=== PATIENT | male | born 1950 | race Caucasian/White ===

== ENCOUNTER 2023-07-02 14:44 | Inpatient (IN) ==
--- NOTE | 2023-07-02 14:54 | ED Triage Note ---
Date of Service July 02, 2023 History of Present Illness This patient was briefly evaluated while in triage. An abbreviated physical exam was performed. This patient is a 73-year-old Male who presents to the ED for evaluation of platelets of 2. They have been dropping recently, much lower than recently. Has never had a transfusion. Not a cancer patient. Recently had an abdominal MRI. Physical Exam CONSTITUTIONAL: in no acute pain or distress, resting comfortably SKIN: pink, warm, dry CARDIAC: regular rate and rhythm RESPIRATORY: in no respiratory distress, lungs clear to auscultatio Initial orders for labs and / or imaging were placed and patient was placed in the waiting area until a bed is available. Please see further documentation for the full ED course.
[2023-07-02 16:06] LABS: Albumin Globulin Ratio 1.3 (0.9-2); Albumin Level 3.6 gm/dl (3.4-5.0); BUN Creatinine Ratio 20.5 (10-20); Bilirubin,Total 0.7 mg/dl (0.2-1.0); Calcium 9.4 mg/dl (8.6-10.3); Creatinine Clr Calc Pharmacy 65.8 ml/min; Est GFR (African American) 71.8 ml/min; Est GFR (Non-African American) 61.9 ml/min; Globulin 2.8 gm/dl (2.5-4.0); Potassium 3.7 mmol/L (3.5-5.1); Total Protein 6.4 gm/dl (6.0-8.3)
[2023-07-02 16:17] LABS: Hematocrit (blood only) 44.8 % (42.0-52.0); Hemoglobin 15.1 g/dl (14.0-18.0); Mean Corpuscular Hemoglobin 32.5 pg (25.0-34.0); Mean Corpuscular Hgb Conc 33.7 g/dL (32.0-36.0); Mean Corpuscular Volume 96.6 fL (80.0-100.0); Platelet Count 2 K/uL (130-400); RDW Coefficient of Variation 13.2 % (11.5-14.5); RDW Standard Deviation 47.2 fL (36.4-46.3); Red Blood Count 4.64 M/uL (4.70-6.10); White Blood Count 4.78 K/ul (4.8-10.8)
[2023-07-02 16:18] LABS: Basophils # (auto) 0.04 K/uL (0.00-0.20); Basophils % (auto) 0.8 %; Eosinophils # (auto) 0.24 K/uL (0.00-0.50); Immature Granulocytes # (auto) 0.02 K/uL (0.01-0.20); Immature Granulocytes % (auto) 0.4 %; Lymphocytes # (auto) 1.79 K/uL (1.20-3.40); Lymphocytes % (auto) 37.4 %; Monocytes # (auto) 0.73 K/uL (0.11-0.59); Monocytes % (auto) 15.3 %; Neutrophils # (auto) 1.96 K/uL (1.40-6.50); Neutrophils % (auto) 41.1 %; Platelet Estimate Signific. Decreased (Normal)
[2023-07-02 16:28] LABS: Partial Thromboplastin Ratio 0.9; Prothrombin Time 10.9 Seconds (9.0-12.0)
--- NOTE | 2023-07-02 16:45 | Emergency Department Note ---
Impression & Plan Severe thrombocytopenia ED Provider Note NAME: LEONOR JORDAN AGE: 73 SEX: M : 1950 ARRIVES VIA: Walk-In INFORMANT: Patient ED PROVIDER(S): Hebert Marti DO CHIEF COMPLAINT: low platelets HPI: Patient is a 73-year-old male who presents to the ER for low platelets. Patient is having no other complaints at this time with exception of rash throughout his body. He denies any headache or change in vision. No chest pain or shortness of breath. No nausea, vomiting, or diarrhea. No blood in the stool. He notes [facility] They feel as though he may have been diagnosed with ITP but or not 100% sure. ADDITIONAL HISTORY OBTAINED: Per HPI Chronic Medical/Social Conditions Affecting Care: Per HPI PAST MEDICAL HISTORY:See Below PAST SURGICAL HISTORY:See Below FAMILY HISTORY:See Below SOCIAL HISTORY:See Below HOME MEDICATIONS:See Below ALLERGIES:See Below VITALS:See Below PHYSICAL EXAMINATION: GENERAL: Sitting up in bed, alert, well appearing, well nourished, no distress, non-toxic EYE EXAM: normal conjunctiva. OROPHARYNX: mucous membranes are moist LUNGS: Clear to auscultation. Normal chest wall mechanics HEART: no murmurs, S1 normal and S2 normal ABDOMEN: abdomen soft, non-tender, normo-active bowel sounds, no masses, no rebound or guarding. SKIN: Petechiae on the abdomen and back UPPER EXTREMITIES: upper extremities are grossly normal. LOWER EXTREMITIES: No pitting edema. NEURO EXAM: Normal sensorium, cranial nerves II-XII grossly intact, normal speech, no gross weakness of arms, no gross weakness of legs. MEDICAL DECISION MAKING: Patient is a 73-year-old male who presents ER for the above-stated complaint. IV was established blood work was obtained. Labs show mild leukopenia at 4.7. No significant anemia. Platelets were severely low at 2. INR unremarkable. BMP with LFTs bilirubin was unremarkable. Patient was typed and screened and initially ordered platelets and discussed with hematology oncology. They recommended IVIG, folic acid as well as a vitamin B12 level in combination with high-dose Decadron 40 mg a day x 3 days and admission for further workup. Patient was given 1 mg/kg of IVIG for total of 80 mg. I updated the patient as well. Patient was admitted to the hospitalist External Records Reviewed: None Consults/Care Managements Discussions: Per MDM Triage Nursing notes reviewed. Limited review of prior medical records performed Vital Signs: reviewed and remarkable for no significant abnormalities Differential diagnosis: Infection, dehydration, metabolic abnormality, hypo/hyperglycemia, electrolyte disturbance, anemia, hypoxia, cardiac sources, intracerebral event, toxicologic, neurologic, as well as other pathologies. ER treatment provided: See below Diagnostics interpreted by me include EKG and cardiac monitoring as listed below: -Cardiac Monitoring: An order was placed for continuous cardiac monitoring. The monitor shows a rate of 70 with sinus rhythm. -ECG: none -Laboratory studies:Interpreted by me as stated above in MDM and shown below. Imaging studies: Xrays: As interpreted by me:none CTs show: none Procedures:none Critical Care: I have personally spent 32 minutes of critical care time in the direct management of this patient. This includes bedside care, interpretation of diagnostic studies, and testing, discussion with consultants, patient, and family members, and other required patient management activities. This 32 minutes is in excess of all separately billable procedures. Past Med/Surg History Medical History (Updated 07/02/23 @ 21:44 by Hebert Marti DO) History of SCC (squamous cell carcinoma) of skin History of basal cell cancer Severe thrombocytopenia Surgical History (Updated 07/02/23 @ 18:31 by Kali Candelario MD) History of arthroscopy of right knee History of inguinal hernia repair History of spinal fusion Social History Smoking Status: Smoker, status unknown Allergies Allergies Allergy/AdvReac Type Severity Reaction Status Date / Time MRI CONTRAST Allergy Intermediate ITCHY RASH Uncoded 07/02/23 17:33 ALL OVER BODY. Home Meds Home Medications Medication Instructions Recorded Confirmed ascorbic acid (vitamin C) 500 mg 500 mg PO QPM 07/02/23 07/02/23 tablet (Vitamin C) biotin 10 mg tablet 10 mg PO HS 07/02/23 07/02/23 cholecalciferol (vitamin D3) 25 25 mcg PO DAILY 07/02/23 07/02/23 mcg (1,000 unit) tablet (Vitamin D3) coenzyme Q10 100 mg capsule 100 mg PO QDL 07/02/23 07/02/23 (CoQ-10) cyanocobalamin (vitamin B-12) 1,000 mcg PO QPM 07/02/23 07/02/23 1,000 mcg tablet (Vitamin B-12) glucosamine sulf dipot 1 cap PO QAM 07/02/23 07/02/23 chlr,msm,chond 550 mg-C 30 mg-nery 1 mg capsule (Glucosamine Chondroitin) multivitamin 1 tab PO QDL 07/02/23 07/02/23 omega 5-tsf-rdx-fish oil 1,000 mg 1 cap PO QDL 07/02/23 07/02/23 (120 mg-180 mg) capsule (Fish Oil) red yeast rice 600 mg tablet 600 mg PO QAM 07/02/23 07/02/23 zinc acetate 50 mg (zinc) capsule 50 mg PO QPM 07/02/23 07/02/23 Results & Data (ED) Vital Signs Vital Signs - 24 hr 07/02/23 14:48 07/02/23 16:58 07/02/23 17:06 Temperature 36.4 C L Temperature Source Oral Pulse Rate 84 77 Pulse Rate [Apical] 75 Pulse Rate from SpO2 Sensor Respiratory Rate 20 20 Respiratory Effort / Characteristics Non-Labored Spontaneous Respiratory Depth Normal Respiratory Pattern Regular Blood Pressure 160/94 H Blood Pressure [Right Arm] 177/100 H Blood Pressure Mean 116 Blood Pressure Mean [Right Arm] 125 Blood Pressure Position [Right Arm] Sitting Pulse Oximetry 97 98 Oxygen Delivery Method Room Air Room Air Sepsis Recent Fever Within 48 Hours No Sepsis New/Unexplained Change in Mental Status N/A Sepsis Action Taken by Nursing No Action Required 07/02/23 17:07 07/02/23 17:07 07/02/23 17:30 Temperature Temperature Source Pulse Rate 74 78 Pulse Rate [Apical] Pulse Rate from SpO2 Sensor 74 78 Respiratory Rate 15 18 Respiratory Effort / Characteristics Respiratory Depth Respiratory Pattern Blood Pressure 177/100 H Blood Pressure [Right Arm] Blood Pressure Mean 132 Blood Pressure Mean [Right Arm] Blood Pressure Position [Right Arm] Pulse Oximetry 98 97 Oxygen Delivery Method Sepsis Recent Fever Within 48 Hours Sepsis New/Unexplained Change in Mental Status Sepsis Action Taken by Nursing Laboratory Data 07/02/23 15:26 07/02/23 15:26 Lab Results 07/02/23 07/02/23 Range/Units 15:26 15:32 WBC 4.78 L (4.8-10.8) K/ul RBC 4.64 L (4.70-6.10) M/uL Hgb 15.1 (14.0-18.0) g/dl Hct 44.8 (42.0-52.0) % MCV 96.6 (80.0-100.0) fL MCH 32.5 (25.0-34.0) pg MCHC 33.7 (32.0-36.0) g/dL RDW Std Deviation 47.2 H (36.4-46.3) fL RDW Coeff of [place]ore[place] 13.2 (11.5-14.5) % Plt Count 2 L* (130-400) K/uL Immature Gran % (Auto) 0.4 % Neut % (Auto) 41.1 % Lymph % (Auto) 37.4 % [place] % (Auto) 15.3 % Eos % (Auto) 5.0 % Baso % (Auto) 0.8 % Neut # (Auto) 1.96 (1.40-6.50) K/uL Lymph # (Auto) 1.79 (1.20-3.40) K/uL [place] # (Auto) 0.73 H (0.11-0.59) K/uL Eos # (Auto) 0.24 (0.00-0.50) K/uL Baso # (Auto) 0.04 (0.00-0.20) K/uL Immature Gran # (Auto) 0.02 (0.01-0.20) K/uL Platelet Estimate Signific. Decreased L (Normal) Peripher Smr Path Cons Cancelled PT 10.9 (9.0-12.0) Seconds INR 1.0 (0.9-1.1) APTT 26.0 (21.0-31.0) Seconds PTT Ratio 0.9 Sodium 139 (136-145) mmol/L Potassium 3.7 (3.5-5.1) mmol/L Chloride 103 (98-107) mmol/L Carbon Dioxide 30 (21-32) mmol/L Anion Gap 6 (3-11) BUN 24 H (6-23) mg/dl Creatinine 1.17 (0.6-1.4) mg/dl Est Cr Clr Drug Dosing 65.8 ml/min Est GFR ( Amer) 71.8 ml/min Est GFR (Non-Af Amer) 61.9 ml/min BUN/Creatinine Ratio 20.5 H (10-20) Glucose 124 H (70-99(Fasting)) mg/dl Calcium 9.4 (8.6-10.3) mg/dl Total Bilirubin 0.7 (0.2-1.0) mg/dl AST 34 (13-39) U/L ALT 30 (7-52) U/L Alkaline Phosphatase 62 (34-104) U/L Total Protein 6.4 (6.0-8.3) gm/dl Albumin 3.6 (3.4-5.0) gm/dl Globulin 2.8 (2.5-4.0) gm/dl Albumin/Globulin Ratio 1.3 (0.9-2) Vitamin B12 935 H (180-914) pg/ml Folate > 22.30 (>5.38) ng/ml Blood Type O Positive Antibody Screen NEGATIVE Administered Medications Immune Globulin (Octagam 10%) 200 mls @ 48.9 mls/hr IV 1730 ROX; Protocol Stop: 07/02/23 23:00 Last Titration: 07/02/23 21:19 Dose: Infused Documented By: Titration: 07/02/23 20:30 Dose: 2.04 mg/kg/min, 100 mls/hr Documented By: Admin: 07/02/23 18:06 Dose: 1 mg/kg/min, 48.9 mls/hr Documented By: AM Discontinued Medications Dexamethasone 40 mg/ Dextrose 35 mls @ 50 mls/hr IV NOW ONE Stop: 07/02/23 17:41 Last Infusion: 07/02/23 18:23 Dose: Infused Documented By: Admin: 07/02/23 17:15 Dose: 50 mls/hr Documented By: QGV Immune Globulin (Immune Globulin (Human) Soln ) 1 each IV NOW ONE Stop: 07/02/23 16:48 Last Admin: 07/02/23 18:06 Dose: Not Given Documented By: AM Discharge Plan Visit Data Chief Complaint: Referred by Doctor Stated Complaint: POSSIBLE BLOOD TRANSFUSION ED Provider: Hbeert Marti Discharge Problem: Severe thrombocytopenia Discharge Instructions Interventions: ED Discharge Assessment Last Done: 07/02/23 20:34
[2023-07-02] MEDS ORDERED: IMMUNE GLOBULIN (HUMAN) SOLN IV ONE (16:47)
[2023-07-02] MEDS ORDERED: dexAMETHasone**PF** 10 MG/ML VIAL IV ONE (16:47)
[2023-07-02] MEDS ORDERED: dexAMETHasone 40 MG in DEXTROSE 5% 25 ML IV ONE (17:00)
[2023-07-02] MEDS ORDERED: Octagam 10% IVIG 20 gram bottle IV SCH (17:30)
[2023-07-02 17:43] LABS: Folate (Folic Acid),Ser orPlas > 22.30 ng/ml (>5.38)
--- NOTE | 2023-07-02 17:44 | History & Physical Report ---
Date of Service July 02, 2023 Assessment & Plan (1) Severe thrombocytopenia: Plan: Suspected ITP Discussed with Dr Braxton - IVIG 1g/kg today, repeat Plt tomorrow to decide on repeated dosing. Dexamethasone 40mg IV daily for 5 days. Consult hematology Plan VTE Prophylaxis - contraindicated in setting of severe thrombocytopenia Diet - regular Disposition - admit to med/surg Admission and Anticipated Discharge Date Admission Date: July 02, 2023 History of Present Illness Chief Complaint: Thrombocytopenia on outpatient labs Primary Care Provider: Nahum Brooks DO Andrew Cochran is a 73 year old male who presented to the ER with platelets of 2. History taken from the patient as I do not have access to the [facility] records at this time. He reports first having a known problem with his platelets in January at the [place]. He followed up with his PCP Dr Brooks and I am unclear on events in the interim however he was treated with 10 days of 40mg dexamethasone on May 08. After stopping this he had moderate side effects of withdrawal with fatigue, diarrhea, frequent urination lasting for 2 days. He was referred to hematology and saw DERIC Jauregui who started 70mg prednisone starting May 15. He was recently weaned off this 1-2 weeks ago over the course of 6-8 days. He reports no epistaxis, hematemesis, hematuria, melena or hematochezia. He has noticed a change in his focusing for the last couple of months - not seeing double and plans to follow up with an almond paste molder regarding this. No vision loss or eye pain. He underwent MRI June 26 and reports the day following this he had a widespread rash which is still present (on inspection this is consistent with petechiae. On outpatient labs today his platelets were 2 therefore he was sent to the ER for further evaluation. ER provider discussed with Dr Braxton and advised IVIG and dexamethasone treatment. Allergies Allergy/AdvReac Type Severity Reaction Status Date / Time MRI CONTRAST Allergy Intermediate ITCHY RASH Uncoded 07/02/23 17:33 ALL OVER BODY. Home Medications Medication Instructions Recorded Confirmed Type ascorbic acid (vitamin C) 500 mg 500 mg PO QPM 07/02/23 07/02/23 History tablet (Vitamin C) biotin 10 mg tablet 10 mg PO HS 07/02/23 07/02/23 History cholecalciferol (vitamin D3) 25 25 mcg PO DAILY 07/02/23 07/02/23 History mcg (1,000 unit) tablet (Vitamin D3) coenzyme Q10 100 mg capsule 100 mg PO QDL 07/02/23 07/02/23 History (CoQ-10) cyanocobalamin (vitamin B-12) 1,000 mcg PO QPM 07/02/23 07/02/23 History 1,000 mcg tablet (Vitamin B-12) glucosamine sulf dipot 1 cap PO QAM 07/02/23 07/02/23 History chlr,msm,chond 550 mg-C 30 mg-nery 1 mg capsule (Glucosamine Chondroitin) multivitamin 1 tab PO QDL 07/02/23 07/02/23 History omega 6-vqo-dyj-fish oil 1,000 mg 1 cap PO QDL 07/02/23 07/02/23 History (120 mg-180 mg) capsule (Fish Oil) red yeast rice 600 mg tablet 600 mg PO QAM 07/02/23 07/02/23 History zinc acetate 50 mg (zinc) capsule 50 mg PO QPM 07/02/23 07/02/23 History Past Med/Surg History Medical History (Updated 07/02/23 @ 21:44 by Hebert Marti DO) History of SCC (squamous cell carcinoma) of skin History of basal cell cancer Severe thrombocytopenia Surgical History (Updated 07/02/23 @ 18:31 by Kali Candelario MD) History of arthroscopy of right knee History of inguinal hernia repair History of spinal fusion Social History Smoking Status: Never smoker Hx Alcohol Use: Yes Alcohol type: beer Hx Substance Use: No Preferred Language: Syriac Communication Ability: Effective Forepart Rounder Required: No Beliefs That Will Affect Care: None Current Living Situation: Significant Other Feels Safe at Home: Yes Safety Concerns: Feels Safe At This Time Review of Systems Review of Systems: All systems reviewed & are unremarkable except as noted in HPI & below Physical Exam Constitutional: WD/WN, vitals as above Eyes: PERRL, conjunctivae normal, anicteric sclerae ENMT: external ear and nose normal, oropharynx normal Neck: trachea midline, no thyromegaly Respiratory: normal respiratory effort, lungs clear to auscultation Cardiovascular: RRR, no murmur, no edema Gastrointestinal (Abdomen): normal bowel sounds, soft, nontender, no hepatosplenomegaly Musculoskeletal: no cyanosis or clubbing, extremities motor strength 5/5 Skin: Widespread petechia over all four limbs abdomen, chest and back Neurologic: moves all extremities and awake; not confused Psychiatric: A+Ox3, euthymic affect Genitourinary: no CVA tenderness Results & Data Results & Data Vital Signs (Past 12 Hours) Vital Signs Temp Pulse Pulse Resp BP BP Pulse Ox 07/02/23 17:06 77 07/02/23 16:58 75 20 177/100 H 98 07/02/23 14:48 36.4 C L 84 20 160/94 H 97 O2 Del Method 07/02/23 17:06 07/02/23 16:58 Room Air 07/02/23 14:48 Room Air Laboratory Results Abnormal lab results 07/02/23 Range/Units 15:26 WBC 4.78 L (4.8-10.8) K/ul RBC 4.64 L (4.70-6.10) M/uL RDW Std Deviation 47.2 H (36.4-46.3) fL Plt Count 2 L* (130-400) K/uL [place] # (Auto) 0.73 H (0.11-0.59) K/uL Platelet Estimate Signific. Decreased L (Normal) BUN 24 H (6-23) mg/dl BUN/Creatinine Ratio 20.5 H (10-20) Glucose 124 H (70-99(Fasting)) mg/dl Diagnostic Findings XR chest 1V portable HISTORY: non-specific pneumonitis on recent MRI COMPARISON: Abdominal MRI 06/26/2023. FINDINGS: No pneumothorax. No pleural effusions. No focal lung consolidations to suggest a pneumonia. No evidence for pulmonary edema. Specifically, no right basilar consolidation to correspond to the prior MRI. The heart is normal in size. No acute fractures identified. IMPRESSION: No focal lung consolidations to suggest a pneumonia.] Medications Administered ER Medications Given: IVIG 1mg/kg/min Decadron 40mg IV Code Status & VTE Plan Code Status Full VTE Prophylaxis Plan VTE Prophylaxis will be ordered: No Reason for no VTE drug order: Contraindicated PG Care Time/CCT Total # of Minutes Spent Total Time Spent with Patient: Total time spent is greater than 50% in coordination of care (as documented) at patient's floor/unit and/or counseling patient: Coding Level of Care Code 34796 INT INP/OBS CARE 2/55MIN Diagnoses Severe thrombocytopenia D69.6
[2023-07-02 18:04] LABS: Vitamin B12 935 pg/ml (180-914)
--- NOTE | 2023-07-02 18:08 | XRay Report ---
XR chest 1V portable HISTORY: non-specific pneumonitis on recent MRI COMPARISON: Abdominal MRI 06/26/2023. FINDINGS: No pneumothorax. No pleural effusions. No focal lung consolidations to suggest a pneumonia. No evidence for pulmonary edema. Specifically, no right basilar consolidation to correspond to the p rior MRI. The heart is normal in size. No acute fractures identified. IMPRESSION: No focal lung consolidations to suggest a pneumonia. ACT 112: Negative or not required by law. Electronically signed by: Piyush Palmer M.D. 07/02/2023 6:07 PM
[2023-07-02] MEDS ORDERED: Octagam 10% IVIG 30 gram bottle IV SCH (19:30)
[2023-07-02] MEDS: Octagam 10% IVIG 20 gram bottle IV SCH (21:49)
[2023-07-03] MEDS: Octagam 10% IVIG 20 gram bottle IV SCH ×6 (01:11→18:39)
[2023-07-03 07:36] LABS: Hematocrit (blood only) 46.2 % (42.0-52.0); Hemoglobin 16.1 g/dl (14.0-18.0); Mean Corpuscular Hemoglobin 32.6 pg (25.0-34.0); Mean Corpuscular Hgb Conc 34.8 g/dL (32.0-36.0); Mean Corpuscular Volume 93.5 fL (80.0-100.0); Platelet Count 3 K/uL (130-400); RDW Coefficient of Variation 12.9 % (11.5-14.5); RDW Standard Deviation 44.3 fL (36.4-46.3); Red Blood Count 4.94 M/uL (4.70-6.10); White Blood Count 5.07 K/ul (4.8-10.8)
[2023-07-03 07:57] LABS: BUN Creatinine Ratio 20.9 (10-20); Calcium 9.2 mg/dl (8.6-10.3); Creatinine Clr Calc Pharmacy 84.7 ml/min; Est GFR (African American) 100.4 ml/min; Est GFR (Non-African American) 86.6 ml/min
[2023-07-03] MEDS: dexAMETHasone 40 MG in DEXTROSE 5% 25 ML IV SCH (08:15)
[2023-07-03 08:16] LABS: Basophils # (auto) 0.01 K/uL (0.00-0.20); Basophils % (auto) 0.2 %; Immature Granulocytes # (auto) 0.02 K/uL (0.01-0.20); Immature Granulocytes % (auto) 0.4 %; Lymphocytes # (auto) 0.54 K/uL (1.20-3.40); Lymphocytes % (auto) 10.7 %; Monocytes # (auto) 0.06 K/uL (0.11-0.59); Monocytes % (auto) 1.2 %; Neutrophils # (auto) 4.44 K/uL (1.40-6.50); Neutrophils % (auto) 87.5 %
[2023-07-03] MEDS ORDERED: IMMUNE GLOBULIN (HUMAN) SOLN IV ONE (08:45)
[2023-07-03] MEDS ORDERED: DEXAMETHASONE SOD INJ 4 MG/ML VIAL IV SCH (09:00)
--- NOTE | 2023-07-03 13:37 | Consultation ---
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 He does not have wet purpura, GI or bleeding, or other immediately threatening aspect to this. He did show good response to dexamethasone approximately 1 month ago but unfortunately ongoing discussion of chronic treatment did not reach a culminating recommendation. There are no particular signs to suggest an auto immune or lymphoproliferative process that lies behind this. He has had no recent new medications or recent or remote toxic exposures that might be causative. Peripheral smear and abdominal CT do not suggest any lymphoproliferative process, microangiopathic process, or other active pathology that might be the cause. We will repeat a 4-day course of dexamethasone 40 mg which can be given either IV or p.o. He did receive 1 g of IVIG on his initial hospital day and with low platelet still today that should be repeated but that should be sufficient for right now. He will need to be to transitioned to a long-term management option. I spoke at length both about rituximab and thrombopoietin receptor agonists like avatrombopag. He has very negative feelings about the rituximab so we will make provisional arrangements to get approval for the avatrombopag. Anticipate that his platelets should rise sufficiently by the weekend for discharge, he is scheduled to see my colleague Dr. Vega July 10 at 1030a at the [facility] (2) Weight loss: Unclear cause. GI work-up with colonoscopy apparently showed 1 benign polyp. I can offer no immediate explanation for weight loss and by his description has modulated somewhat. There was some lower abdominal discomfort at 1 point last year but his current abdominal MRI is completely unremarkable (hepatic lobulations suspected on CT scan did not bear out on the MRI). Only a remote history of tobacco use, might consider imaging of his chest but that is likely to be low yield. There were some inferior changes on the abdominal MRI to suggest some atelectasis. May also need to consider whether or not an endocrine work-up would be worthwhile. Plan Immediate priority is to thrombocytopenia short-term should receive Decadron and immunoglobulin as above and given his response previously I would expect he would at least get a temporary response now. Once his platelets have risen consistently above 20,000 (confirmed on at least 2 separate determinations) he can be cautiously discharged but with admonition to rapidly return for any recurrent bleeding or rash. He will need to transition to a longer term management strategy. That we will likely be thrombopoietin receptor agonist and we are seeking provisional approval for avatrombopag. He is scheduled to see Dr. Vega on July 10 at 10:30 AM the [facility] to finalize that. Weight loss is without immediately clear explanation and indeed may have modulated spontaneously. As we stabilize his platelet count, Dr. Vega can also determine to what extent further work-up for that weight loss is required. This may require endocrine evaluation as well. I have given the patient an after visit summary generated from the [facility] database that reviews his provisional diagnosis of ITP, outlines the treatment plan, notes the potential for second opinion which he is already arranging, and gives him relevant websites to consult. I have also generated patient oriented information sheets about both rituximab and avatrombopag and given to him for review History of Present Illness Reason for Consultation: Severe thrombocytopenia Attending Physician: Hebert Huitron DO History of Present Illness 73-year-old [employer] who did not serve in areas where he was exposed to agent or to other toxic chemicals admitted with profound thrombocytopenia and petechiae Patient was followed [facility] with some ongoing questions as to the status of his liver. Serial blood counts showed a downtrending platelet count which had been at 144,000 in July 2022 but had fallen down to 57,000 in March and then less than 30,000 at the end of April. He was treated with dexamethasone initially 40 mg daily for 4 days and then apparently a taper over 2 weeks with platelet counts rising into the 90,000 range. Work-up showed negative screens for HIV and hepatitis C, normal B12 and folic acid levels, peripheral smear review at the [facility] and then again here in our hospital showed no suggestions for microangiopathic process or platelet clumping. There has been no suggestion of a lymphoproliferative disorder. (Lab results from the [facility] are scanned to our [facility] chart) February CT scan done through the [facility] on 02/27/2023 showed normal-sized liver but lobulated margins and coarse echo pattern suggestive of hepatocellular disease. Spleen size was normal. Kidneys show unremarkable cyst on the left side, there is no pathologic adenopathy. Follow-up abdominal MRI here on 06/26/2023 showed no acute intra-abdominal abnormality, liver and spleen were felt to be normal on that study, MRCP was normal, he had indeterminate right basilar opacities on lung evaluation His last steroid had been in mid June, he has developed petechial rash on his lower extremities bilaterally and as well marrow petechiae and bruising in the right upper extremity and was admitted with single digit platelet counts. He has not had wet purpura, hemoptysis, melena, hematochezia, hematuria, or other major bleeding issues and currently feels reasonably well He has had only a very remote history of tobacco use and briefly at a young age. He is not significant alcohol drinker. While in the [employer] he had no major toxic exposures. 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 GI evaluation in 2021 showed 1 polyp that was apparently benign on colonoscopy. Overall GI could not identify any discrete abnormality causing his problems He is taken no new medications recently, he has not had any other unusual exposures, other than the recent petechiae he has had no particular issues with hemostasis in the past. He has had no fevers, chills or signs of infection and [facility]. He is not having any other major focal systems complaints at this time He is not aware of any unusual pattern of blood disorders or cancer in the family. He has had some superficial skin cancers, apparently squamous cell cancer particular but no other personal history of any malignancy or suggestion of malignancy Allergies Allergy/AdvReac Type Severity Reaction Status Date / Time MRI CONTRAST Allergy Intermediate ITCHY RASH Uncoded 07/02/23 17:33 ALL OVER BODY. Home Medications Medication Instructions Recorded Confirmed Type ascorbic acid (vitamin C) 500 mg 500 mg PO QPM 07/02/23 07/02/23 History tablet (Vitamin C) biotin 10 mg tablet 10 mg PO HS 07/02/23 07/02/23 History cholecalciferol (vitamin D3) 25 25 mcg PO DAILY 07/02/23 07/02/23 History mcg (1,000 unit) tablet (Vitamin D3) coenzyme Q10 100 mg capsule 100 mg PO QDL 07/02/23 07/02/23 History (CoQ-10) cyanocobalamin (vitamin B-12) 1,000 mcg PO QPM 07/02/23 07/02/23 History 1,000 mcg tablet (Vitamin B-12) glucosamine sulf dipot 1 cap PO QAM 07/02/23 07/02/23 History chlr,msm,chond 550 mg-C 30 mg-nery 1 mg capsule (Glucosamine Chondroitin) multivitamin 1 tab PO QDL 07/02/23 07/02/23 History omega 6-skr-cab-fish oil 1,000 mg 1 cap PO QDL 07/02/23 07/02/23 History (120 mg-180 mg) capsule (Fish Oil) red yeast rice 600 mg tablet 600 mg PO QAM 07/02/23 07/02/23 History zinc acetate 50 mg (zinc) capsule 50 mg PO QPM 07/02/23 07/02/23 History Patient History Medical History (Updated 07/03/23 @ 13:50 by Ezio Braxton MD) History of SCC (squamous cell carcinoma) of skin History of basal cell cancer Severe thrombocytopenia Surgical History (Updated 07/02/23 @ 18:31 by Kali Candelario MD) History of arthroscopy of right knee History of inguinal hernia repair History of spinal fusion Social History Smoking Status: Never smoker Hx Alcohol Use: Yes Alcohol type: beer Hx Substance Use: No Preferred Language: Taiwanese Communication Ability: Effective Consultant Nurse Required: No Beliefs That Will Affect Care: None Current Living Situation: Significant Other Feels Safe at Home: Yes Safety Concerns: Feels Safe At This Time Assistive Devices: None Physical Exam Physical Exam: VSS except for modest elevation of blood pressure. Alert, cooperative, seems completely comfortable. HEENT exam is overall unremarkable and he specifically does not have wet purpura No pathologic adenopathy in cervical supraclavicular or axillary regions His lungs are clear Cardiac rhythm is rate without pathological murmur The abdomen seems benign specifically his spleen is neither enlarged nor tender and the liver edge seems smooth and nontender as well He has bilateral lower extremity petechiae concentrated below the mid calf. There is a 1 to 2 cm ecchymosis surrounded by some additional petechiae in the right upper extremity proximal to the shoulder. His neurologic exam seems completely nonfocal Results & Data Vital Signs (Past 12 Hours) Vital Signs Pulse Resp BP Pulse Ox O2 Del Method 07/03/23 07:17 100 H 20 173/93 H 95 Room Air Laboratory Results Laboratory Results - last 24 hr 07/02/23 07/02/23 07/02/23 15:26 15:26 15:32 WBC 4.78 L RBC 4.64 L Hgb 15.1 Hct 44.8 MCV 96.6 MCH 32.5 MCHC 33.7 RDW Std Deviation 47.2 H RDW Coeff of Florencio 13.2 Plt Count 2 L* Immature Gran % (Auto) 0.4 Neut % (Auto) 41.1 Lymph % (Auto) 37.4 [place] % (Auto) 15.3 Eos % (Auto) 5.0 Baso % (Auto) 0.8 Neut # (Auto) 1.96 Lymph # (Auto) 1.79 [place] # (Auto) 0.73 H Eos # (Auto) 0.24 Baso # (Auto) 0.04 Immature Gran # (Auto) 0.02 Platelet Estimate Signific. Decreased L Peripher Smr Path Cons Cancelled PT 10.9 INR 1.0 APTT 26.0 PTT Ratio 0.9 Sodium 139 Potassium 3.7 Chloride 103 Carbon Dioxide 30 Anion Gap 6 BUN 24 H Creatinine 1.17 Est Cr Clr Drug Dosing 65.8 Est GFR ( Amer) 71.8 Est GFR (Non-Af Amer) 61.9 BUN/Creatinine Ratio 20.5 H Glucose 124 H Calcium 9.4 Total Bilirubin 0.7 AST 34 ALT 30 Alkaline Phosphatase 62 Total Protein 6.4 Albumin 3.6 Globulin 2.8 Albumin/Globulin Ratio 1.3 Vitamin B12 935 H Folate > 22.30 Blood Type O Positive Antibody Screen NEGATIVE 07/03/23 06:41 WBC 5.07 RBC 4.94 Hgb 16.1 Hct 46.2 MCV 93.5 MCH 32.6 MCHC 34.8 RDW Std Deviation 44.3 RDW Coeff of Florencio 12.9 Plt Count 3 L* Immature Gran % (Auto) 0.4 Neut % (Auto) 87.5 Lymph % (Auto) 10.7 [place] % (Auto) 1.2 Eos % (Auto) 0.0 Baso % (Auto) 0.2 Neut # (Auto) 4.44 Lymph # (Auto) 0.54 L [place] # (Auto) 0.06 L Eos # (Auto) 0.00 Baso # (Auto) 0.01 Immature Gran # (Auto) 0.02 Platelet Estimate Peripher Smr Path Cons PT INR APTT PTT Ratio Sodium 135 L Potassium 4.0 Chloride 102 Carbon Dioxide 26 Anion Gap 7 BUN 18 Creatinine 0.86 D Est Cr Clr Drug Dosing 84.7 Est GFR ( Amer) 100.4 Est GFR (Non-Af Amer) 86.6 BUN/Creatinine Ratio 20.9 H Glucose 163 H Calcium 9.2 Total Bilirubin AST ALT Alkaline Phosphatase Total Protein Albumin Globulin Albumin/Globulin Ratio Vitamin B12 Folate Blood Type Antibody Screen Diagnostic Findings Chest X-Ray 07/02/23 17:45 XR chest 1V portable HISTORY: non-specific pneumonitis on recent MRI COMPARISON: Abdominal MRI 06/26/2023. FINDINGS: No pneumothorax. No pleural effusions. No focal lung consolidations to suggest a pneumonia. No evidence for pulmonary edema. Specifically, no right basilar consolidation to correspond to the prior MRI. The heart is normal in size. No acute fractures identified. IMPRESSION: No focal lung consolidations to suggest a pneumonia. ACT 112: Negative or not required by law. Electronically signed by: Piyush Palmer M.D. 07/02/2023 6:07 PM 06/26/2023 MR abdomen 1. No acute intra-abdominal abnormality is identified. 2. The liver and spleen are normal in appearance. 3. Normal MRCP. 4. There are indeterminate right basilar opacities which may represent atelectasis. This is not well assessed by MRI. Correlate clinically for evidence of a nonspecific pneumonitis PG Care Time/CCT Total # of Minutes Spent Total Time Spent with Patient: Total time spent is greater than 50% in coordination of care (as documented) at patient's floor/unit and/or counseling patient: Coding Level of Care Code 55509 IN/OBS CONSULT LVL 4,60M Diagnoses Severe thrombocytopenia D69.6 Weight loss R63.4
--- NOTE | 2023-07-03 18:21 | Hospitalist Progress Note ---
Date of Service July 03, 2023 Assessment & Plan (1) Severe thrombocytopenia: Plan: Most consistent with ITP. On dexamethasone 40 mgcontinue. Given IVIG 1 g/kg yesterdayrepeat. Discussed overall course of care, and strategies of management, hopefully he will show a rebound in his platelets and be able to get home sooner rather than later. Ongoing discussions on longer-term treatment. Plan VTE Prophylaxis - contraindicated in setting of severe thrombocytopenia Diet - regular Disposition - stable on [facility] Admission and Anticipated Discharge Date Admission Date: July 02, 2023 Subjective overall feeling pretty good. Has a little bit of bruising but nothing that is been progressive, no mucosal bleeding. Extensive discussion on ITP, overall course of care, overall strategies of management, and current situation. Answered all questions to the best my ability and to his satisfaction. Review of Systems Review of Systems: All systems reviewed & are unremarkable except as noted in HPI & below Physical Exam Physical Exam: In general he is awake and alert pleasant no distress. HEENT normocephalic at raumatic mucous membranes moist. Breathing unlabored no accessory muscle use good effort. Skin shows no rashes no pallor or icterus. He does show scattered petechiae and a little bit of purpuramost pronounced on his lateral arm. Neuro without focal deficits. Results & Data Results & Data Vital Signs (Past 12 Hours) Vital Signs Temp Pulse Resp BP BP Pulse Ox O2 Del Method 07/03/23 18:04 95 H 20 155/84 H 95 Room Air 07/03/23 14:39 98.1 F 101 H 20 161/92 H 94 Room Air 07/03/23 07:17 100 H 20 173/93 H 95 Room Air PG Care Time/CCT Total # of Minutes Spent Total Time Spent with Patient: Total time spent is greater than 50% in coordination of care (as documented) at patient's floor/unit and/or counseling patient: Coding Level of Care Code 48541 SUB INP/OBS CARE 3/50MIN Diagnoses Severe thrombocytopenia D69.6
[2023-07-04 07:08] LABS: Hematocrit (blood only) 40.8 % (42.0-52.0); Hemoglobin 14.5 g/dl (14.0-18.0); Mean Corpuscular Hemoglobin 32.5 pg (25.0-34.0); Mean Corpuscular Hgb Conc 35.5 g/dL (32.0-36.0); Mean Corpuscular Volume 91.5 fL (80.0-100.0); Mean Platelet Volume 11.8 fL (9.4-12.4); Platelet Count 19 K/uL (130-400); RDW Coefficient of Variation 13.2 % (11.5-14.5); RDW Standard Deviation 44.8 fL (36.4-46.3); Red Blood Count 4.46 M/uL (4.70-6.10); White Blood Count 9.93 K/ul (4.8-10.8)
[2023-07-04 07:19] LABS: Calcium 9.1 mg/dl (8.6-10.3); Creatinine Clr Calc Pharmacy 81.8 ml/min; Est GFR (Non-African American) 85.4 ml/min; Potassium 3.9 mmol/L (3.5-5.1)
[2023-07-04 07:26] LABS: Basophils # (auto) 0.01 K/uL (0.00-0.20); Basophils % (auto) 0.1 %; Immature Granulocytes # (auto) 0.05 K/uL (0.01-0.20); Immature Granulocytes % (auto) 0.5 %; Lymphocytes # (auto) 0.85 K/uL (1.20-3.40); Lymphocytes % (auto) 8.6 %; Monocytes # (auto) 0.83 K/uL (0.11-0.59); Monocytes % (auto) 8.4 %; Neutrophils # (auto) 8.19 K/uL (1.40-6.50); Neutrophils % (auto) 82.4 %
[2023-07-04] MEDS: dexAMETHasone 40 MG in DEXTROSE 5% 25 ML IV SCH (08:29)
[2023-07-04 11:54] LABS: Basophils # (auto) 0.01 K/uL (0.00-0.20); Basophils % (auto) 0.1 %; Hematocrit (blood only) 46.9 % (42.0-52.0); Immature Granulocytes # (auto) 0.07 K/uL (0.01-0.20); Immature Granulocytes % (auto) 0.6 %; Lymphocytes # (auto) 0.79 K/uL (1.20-3.40); Mean Corpuscular Hemoglobin 32.1 pg (25.0-34.0); Mean Corpuscular Hgb Conc 34.1 g/dL (32.0-36.0); Mean Platelet Volume 12.6 fL (9.4-12.4); Monocytes % (auto) 7.9 %; Neutrophils # (auto) 9.58 K/uL (1.40-6.50); Neutrophils % (auto) 84.4 %; Platelet Count 23 K/uL (130-400); RDW Coefficient of Variation 13.3 % (11.5-14.5); RDW Standard Deviation 45.9 fL (36.4-46.3); Red Blood Count 4.99 M/uL (4.70-6.10); White Blood Count 11.35 K/ul (4.8-10.8)
--- NOTE | 2023-07-04 15:51 | Discharge Summary ---
Date of Service July 04, 2023 Admission HPI Per Admitting Provider Andrew Cochran is a 73 year old male who presented to the ER with platelets of 2. History taken from the patient as I do not have access to the [facility] records at this time. He reports first having a known problem with his platelets in January at the [facility]. He followed up with his PCP Dr Brooks and I am unclear on events in the interim however he was treated with 10 days of 40mg dexamethasone on May 08. After stopping this he had moderate side effects of withdrawal with fatigue, diarrhea, frequent urination lasting for 2 days. He was referred to hematology and saw DERIC Jauregui who started 70mg prednisone starting May 15. He was recently weaned off this 1-2 weeks ago over the course of 6-8 days. He reports no epistaxis, hematemesis, hematuria, melena or hematochezia. He has noticed a change in his focusing for the last couple of months - not seeing double and plans to follow up with an measurement superintendent regarding this. No vision loss or eye pain. He underwent MRI June 26 and reports the day following this he had a widespread rash which is still present (on inspection this is consistent with petechiae. On outpatient labs today his platelets were 2 therefore he was sent to the ER for further evaluation. ER provider discussed with Dr Braxton and advised IVIG and dexamethasone treatment. Principal Diagnosis ITP Discharge Exam general he is awake and alert pleasant no distress. HEENT normocephalic atraumatic mucous membranes moist. Breathing unlabored no accessory muscle use good effort. Skin shows no new rashes no pallor or icterus. Neuro without focal deficits. No new bruising or bleeding identified. Discharge Data Allergies Allergy/AdvReac Type Severity Reaction Status Date / Time MRI CONTRAST Allergy Intermediate ITCHY RASH Uncoded 07/02/23 17:33 ALL OVER BODY. Consultations 07/02/23 17:07 ED Decision to Admit Stat 07/02/23 20:35 Consult Hematology Routine Hospital Course (1) Severe thrombocytopenia: Most consistent with ITP. On dexamethasone 40 mgcontinue through tomorrow for 4days total. Given IVIG 1 g/kg x2. platelets this morning 19, recheck 23, no new signs or symptoms of bleeding, patient reliable and understands his situation and red flags to watch for and would return with any bleeding, and would very much like to go homeall seems quite reasonable for outpatient follow-up. Discussed overall course of care, and strategies of management, Outpatient follow-up with hematology, PCP. Plan VTE Prophylaxis - contraindicated in setting of severe thrombocytopenia Diet - regular Disposition - stable on medsurg Total Time Total Time Spent Total Time Spent (In Minutes): >30 Discharge Plan Discharge Items Patient Disposition: Home - Self-Care Reason For Visit: SEVERE THOMBOCYTOPENIA Discharge Diagnosis: ITP (see below) Activity: Per Instructions section Non-emergency contact: Primary Care Provider and Specialist Call non-emergency contact if: you have any medication questions and your sy mptoms worsen Follow-up/Referrals: Nahum Brooks, [Primary Care Provider] - Diet: Regular Addtl Attending Provider Instructions: ITP: - As we discussed, a good way of looking at ITP to make it feel less "mysterious and confusing" is to think of it as an immune system assault on your platelets. Just like if our immune system is acting appropriately and going after or bacteria or viruses, when our immune system acts inappropriately and attacks are platelets, that can make a big impact in a hurry. - Because of this, what we do to treat ITP are generally measures to try to squelch that immune system response. - Fortunately you are showing good improvement on the high dosing of dexamethasone (a very strong dosing of steroids to suppress your immune system temporarily) and after having had dosing of IVIG (essentially donor antibodies to bind to your immune systems antibodies that would be assaulting your platelets) - your recheck platelet count is now 23as we discussed, while you need to take measures to stay safe (see below) I do think it is safe to send you home with close follow-up as far as finishing out our "current round of treatment"you have had 3 out of 4 days of the 40 mg of dexamethasone, it really works just as well by pill as it does IVso you will take 40 mg of dexamethasone by mouth tomorrow. Because that is such a high dose, the feeling stimulated, the blurred vision, massively increased appetitethat is all expected with activity: Assume anything that could cause bleeding or bruising, or incre ased pressure across blood vessels, could potentially cause problems. To that end, I definitely would not want you doing anything that would put you at risk of even minor trauma (which is why unfortunately hunting is out the season, and when you are around the horses, you have to essentially look at them as a gun pointed at you and avoid being kicked at all costs), and I would want you to avoid anything that leads to having to lift heavy enough that you have to use your core muscles (anything that causes a "Valsalva"or where you hold your breath and tense your core) would be too much lifting given that it can generate a lot of pressure across blood vessels and potentially lead to a broken blood vessel that has bleeding. Keep an eye on how you are doingif that purpleish polka dotted rashwhich is essentially bleeding under the skinworsens I would want you back right away. Similarly if you had nosebleeds, bleeding gums, bloody bowel movements, blood in your urineany of that I would want you back right away. As we discussed, that is all quite unlikely to happen, but those would be "red flags" that I would not want you to ignore. Have lab work checked again in the next few daysrepeat CBC to keep an eye on your platelet count. Keep your follow-up at the hematology office next week next steps in treatment: As we discussed, the main 2 options that you are weighing her rituximab versus avatrombopag rituximab essentially asked to suppress your immune system furtherit is essentially a chemotherapy agentthe main purpose of it would be to quell that immune system response that is assaulting your platelets. As we discussed, it can lead to serious immune suppression, but as a hospitalist I see people when "the wheels come off the bus" and it is fairly rare if ever that I see someone fall into my lap due to serious consequences from rituximab alone (as we discussed it is usually more when they are on a combination therapy including rituximab). That is not to say that serious consequences cannot happen, but I would look at it more as something that probably for how it impacts your life would moderately suppress your immune system, not catastrophically suppress it. Obviously that is not always the case, but with what I see I would look at it through that lines. Because it suppresses your immune system more and reduces how much your immune system can salt your platelets, the literature suggests a pretty good chance of relatively long-term improvement in the ITP, usually with a weekly infusion for 4 weeks, by what I have read. Avatrombopag is an entirely different approachit does not do anything to squelch your immune system's assault on your platelets, but rather it is medicine that asked to stimulate your bone marrow to make more platelets. Basically what it does is tries to make sure that you are throwing out platelets faster than your immune system can destroy them. Because this does not quell the immune system response, it is really viewed as more of a "open ended" line of treatment rather than a course of therapy. By what I can tell, it works pretty well but not quite as effectively as the rituximab in terms of the long- term outcomes with ITP, but also appears to be fairly minimal as far as serious side effects. Obviously continue to talk all of this over with Dr. Brooks and with your hematology group, as well as your brother. definitely pay attention to the weight loss, follow your weight every few days on your scale at home. like we discussed, different scales are going to be "accurate to themselves" so i wouldn't really look at your weight in comparison from one scale to the next - but rather the trend of what your weight is doing on one scale. in addition to the follow up appointment with Dr Vega next week, I would recommend seeing Dr Brooks the following in order to make sure you have another doc to be able to discuss all of the moving parts with what is going on with you. Also, while it's very likely they will advocate for the same treatment options, we've asked for your peace of mind to try to get things underway for an opinion from the other local oncology group ([facility]). Pending Studies at Discharge: No Stand-Alone Forms: My [facility], Smoking Cessation Medications and DC Order Prescriptions: New dexamethasone 4 mg tablet 40 mg PO ONCE Qty: 10 0RF Rx Instructions: take 40mg on 07/05/23 Continued multivitamin Tablet 1 tab PO QDL biotin 10 mg Tablet 10 mg PO HS zinc acetate 50 mg (zinc) Capsule 50 mg PO QPM cyanocobalamin (vitamin B-12) [Vitamin B-12] 1,000 mcg Tablet 1,000 mcg PO QPM ascorbic acid (vitamin C) [Vitamin C] 500 mg Tablet 500 mg PO QPM coenzyme Q10 [CoQ-10] 100 mg Capsule 100 mg PO QDL omega [id number]-fish oil [Fish Oil] 1,000 mg (120 mg-180 mg) Capsule 1 cap PO QDL red yeast rice 600 mg Tablet 600 mg PO QAM Rx Instructions: give with meal/snack Glucosamine Chondroitin 550-30-1 mg Capsule 1 cap PO QAM cholecalciferol (vitamin D3) [Vitamin D3] 25 mcg (1,000 unit) Tablet 25 mcg PO DAILY Discharge Orders: Discharge Order (Routine); Ordered 07/04/23 Ordered By: Hebert Anders/Other Patient Handouts: Thrombocytopenia Admission Data Admit Date/Time: 07/02/23 17:42 Attending Provider: Hebert Huitron Admit Provider: Kali Candelario Primary Care Provider: Nahum Brooks Other Providers: Kali Candelario; Ezio Braxton Other Interventions: Discharge Summary Assessment (RN) Last Done: 07/04/23 13:29 Coding Level of Care Code 64943 INP/OBS DISCH >30 MIN Diagnoses Severe thrombocytopenia D69.6
== END 2023-07-04 15:44 | disposition home or self-care (01) | DRG 813 ==
LOC: ED 14:44 → SUATTDRO 17:42 → EDINP 17:42 → 3N 23:19